=== PATIENT | female | born 1975 | race Caucasian/White ===

== ENCOUNTER 2020-09-04 14:58 | Emergency (ER) | payer OTHER ==
[~2020-09-04] VITALS: Ht 162.6 cm; Wt 86.2 kg
[2020-09-04 15:00] VITALS: BP 133/86
[2020-09-04] MEDS ORDERED: ONDANSETRON 4 MG ODT PO ONE (15:15)
[2020-09-04] MEDS ORDERED: MECLIZINE 25 MG TAB PO ONE (15:15)
--- NOTE | 2020-09-04 15:25 | NUR ---
45 YEAR OLD FEMALE COMPLAINS OF DIZZINESS X TODAY. PT ALSO COMPLAINS OF HEADACHE. PT AOX4, BREATHING EVEN AND UNLABORED, SKIN WARM AND DRY. BED IN LOWEST POSITION, SEMI-FOWLERS, LOCKED, BED RAIL UPX1. PMH - DENIES ALLERGIES - NKA
[2020-09-04] MEDS ORDERED: KETOROLAC 30 MG/ML VIAL IM ONE (15:30)
[2020-09-04 15:32] LABS: BASOPHILS # (AUTO) 0.1 K/uL (0.00-0.22); BASOPHILS % (AUTO) 0.7 % (0.0-2.0); EOSINOPHILS # (AUTO) 0.3 K/uL (0-0.4); EOSINOPHILS % (AUTO) 2.4 % (0.0-4.0); HEMATOCRIT 32.1 % (36-48); HEMOGLOBIN 10.5 g/dL (12.0-16.0); LYMPHOCYTES # (AUTO) 1.7 K/uL (2.5-16.5); LYMPHOCYTES % (AUTO) 15.2 % (20.5-51.1); MEAN CORPUSCULAR HEMOGLOBIN 25 pg (27-31); MEAN CORPUSCULAR HGB CONC 33 g/dL (33-37); MEAN CORPUSCULAR VOLUME 76.3 fL (80-94); MONOCYTES # (AUTO) 0.5 K/uL (0.8-1.0); MONOCYTES % (AUTO) 4.7 % (1.7-9.3); NEUTROPHILS # (AUTO) 8.5 K/uL (1.8-7.7); PLATELET COUNT (AUTO) 310 K/uL (140-450); RED BLOOD CELL COUNT(AUTO) 4.21 MIL/uL (4.20-5.40); RED CELL DISTRIBUTION WIDTH 14.3 % (11.6-13.7); WHITE BLOOD COUNT (AUTO) 11.1 K/uL (4.8-10.8)
[2020-09-04 15:46] LABS: ALBUMIN 3.5 g/dL (3.4-5.0); ANION GAP 8.8 (8-16); CARBON DIOXIDE 28.3 mmol/L (21-32); CREATININE 0.7 mg/dL (0.6-1.3); POTASSIUM 4.1 mmol/L (3.5-5.1); TOTAL BILIRUBIN 0.3 mg/dL (0.0-1.0)
[2020-09-04] MEDS ORDERED: NAPR-54 PO (16:03)
[2020-09-04] MEDS ORDERED: MECL-303 PO (16:03)
[2020-09-04] MEDS ORDERED: ONDA-24 SL (16:03)
--- NOTE | 2020-09-04 16:38 | NUR ---
Patient discharged with v/s stable. Written and verbal after care instructions given and explained. Patient alert, oriented and verbalized understanding of instructions. Ambulatory with steady gait. All questions addressed prior to discharge. ID band removed. Patient advised to follow up with PMD. Rx of meclizine 25mg PO BID, naproxen 500mg PO BID, and zofran 4mg PO q8h given. Patient educated on indication of medication including possible reaction and side effects. Opportunity to ask questions provided and answered.
== END 2020-09-04 16:38 | disposition home or self-care (01) ==
LOC: MED 14:58
DX: R11.2 Nausea with vomiting, unspecified (principal); R51.9 Headache, unspecified; R42 Dizziness and giddiness; J45.909 Unspecified asthma, uncomplicated; Z79.899 Other long term (current) drug therapy
CPT/HCPCS: 36415; 80053; 81002; 81025; 85025; 93005; 96372; 99284; J1885; J8597; Q0162

== ENCOUNTER 2021-10-06 18:56 | Emergency (ER) | payer OTHER ==
[~2021-10-06 18:56] MED LIST: MECL-303 PO; NAPR-54 PO; ONDA-188 SL
--- NOTE | 2021-10-06 19:36 | NUR ---
CALLED FOR PATIENT NO ANSWER AT THIS TIME
--- NOTE | 2021-10-06 20:38 | NUR ---
PATIENT LEFT WITHOUT BEING SEEN BY DR. ALBERTS. NO FURTHER CARE PROVIDED FOR PATIENT.
--- NOTE | 2021-10-06 20:38 | NUR ---
CALLED FOR PATIENT NO ANSWER
== END 2021-10-06 19:36 | disposition left against medical advice (07) ==
LOC: MED 18:56
DX: R10.9 Unspecified abdominal pain (principal); Z53.21 Procedure and treatment not carried out due to patient leaving prior to being seen by health care provider